=== PATIENT | female | born 1995 | race Caucasian/White ===

== ENCOUNTER 2016-07-18 22:17 | Emergency (ER) | payer OTHER ==
--- NOTE | 2016-08-16 04:01 | ER ---
ADMIT: 07/18/2016 RM/LOC: ER [facility] MR#: [id number] [id number] MARIA MARTIN [facility] [place] [address] Emergency Room Report SEX: F AGE: 21 : 1995 DATE: 07/18/2016 ADDENDUM: This patient comes to the ER because she has pain in her right ankle. She was standing on a stool when she fell and twisted. Now, she has swelling and tenderness in the right ankle. X-ray was negative for any fractures. DIAGNOSIS: Right ankle sprain. The patient was given an David wrap and an air splint and ibuprofen 800 mg. We will have her ice and elevate. She is to follow up with her doctor in 1 week if not better. Please see my T-sheet. OFELIA Winn / Navid Little MD / lilliam JOB #: [id number] CC: Navid Little MD, Attending Physician Jessica Ponce MD, Family Physician
== END 2016-07-18 23:15 | disposition home or self-care (01) ==
LOC: ER 22:17
DX: S93.401A Sprain of unspecified ligament of right ankle, initial encounter (principal); F17.210 Nicotine dependence, cigarettes, uncomplicated; Z79.899 Other long term (current) drug therapy; X50.1XXA Overexertion from prolonged static or awkward postures, initial encounter; Y92.009 Unspecified place in unspecified non-institutional (private) residence as the place of occurrence of the external cause